=== PATIENT | female | born 1925 | race Caucasian/White ===

== ENCOUNTER → 2017-07-06 | Outpatient (CLI) | payer MEDICARE, BC ==
[~2017-07-06] MED LIST: ASPI-1471 PO; CHOL200038 PO; HYDR-2966 PO; LOSA50TA72 PO; MULT-820 PO; NO MEDS
--- NOTE | 2017-07-06 16:59 | RADIOLOGY IMAGING REPORT ---
FACILITY: [facility] - [place], [place] PATIENT NAME: Raegan Roche : 1925 MR: [id number] V: [id number] EXAM DATE: ORDERING PHYSICIAN: AUTUMN FRANKS TECHNOLOGIST: Location: [facility] - [place] Patient: Raegan Roche : 1925 Visit/Account:[id number] Date of Sevice: 07/06/2017 THYROID HISTORY: Hypothyroidism COMPARISON: April 25, 2016 FINDINGS: SIZE: Right lobe: 5.7 x 2.1 x 2.1 cm and a decrease in size when compared to the prior study. Left lobe: 3.9 x 1.7 x 1.6 cm and is also decreased in size when compared the prior study Isthmus: 6 mm PARENCHYMA: The left lobe is extremely heterogeneous NODULES: Right * Scattered calcifications are seen in the mid to inferior right lobe Left lobe: * There is a 9.7 mm nodule in the inferior left lobe with echogenic center and a hypoechoic rim is m inimally increased in size when compared the prior study Isthmus: * None discrete. VASCULARITY: Within normal limits. ADDITIONAL FINDINGS: None. IMPRESSION: Both lobes of the thyroid gland have decreased in size when compared to the prior study. There is a 9.7 mm nodule inferior left lobe with an echogenic center and a hypoechoic rim is minimall y increased in size when compared the prior study. Scattered calcified occasions are seen in the mid to inferior right lobe. Six-month follow-up thyroi d ultrasound recommended unless clinical findings were immediate attention REFERENCE: 2015 [employer] [place] [employer] Management Guidelines for Adult Patients with Thyroid Nodules and D ifferentiated Thyroid Cancer: The [place] [employer] Guidelines Task Force on Thyroid Nodul es and Differentiated Thyroid Cancer. SONOGRAPHIC PATTERNS: * Benign: Purely cystic nodules (no solid component); estimated risk of malignancy <1 percent; no bi opsy recommended. * Very Low Suspicion: Spongiform or partially cystic nodules without any of the sonographic features described in low, intermediate, or high suspicion patterns; estimated risk of malignancy <3 percent; consider FNA at > 2 cm (Observation without FNA is also a reasonable option). * Low Suspicion: Isoechoic or hyperechoic solid nodule, or partially cystic nodule with eccentric so lid areas, without microcalcification, irregular margin or ETE (extra-thyroidal extension), or taller than wide shape; estimated risk of malignancy 5-10 percent; recommend FNA at >1.5 cm. * Intermediate Suspicion: Hypoechoic solid nodule with smooth margins without microcalcifications, E TE (extra-thyroidal extension), or taller than wide shape; estimated risk of malignancy 10-20 percent ; recommend FNA at > 1 cm. * High Suspicion: Solid hypoechoic nodule or solid hypoechoic component of a partially cystic nodule with one or more of the following features: irregular margins (infiltrative, microlobulated), microc alcifications, taller than wide shape, rim calcifications with small extrusive soft tissue component, evidence of ETE (extra-thyroidal extension); estimated risk of malignancy >70-90 percent; recommend FNA at > 1 cm. NOTES: * Although a sonographically suspicious subcentimeter thyroid nodule without evidence of extrathyroi jami extension or sonographically suspicious lymph nodes may be observed with close sonographic follow -up rather than pursuing immediate FNA, patient age and preference may modify decision-making. A > 50% interval increase in nodule volume and/or development of new suspicious sonographic features are felt to be a valid reasons for potential re-aspiration of a nodule previously shown to have benig n FNA cytology. Report Dictated By: Sasha Velasco MD at 07/06/2017 4:40 PM Report E-Signed By: Sasha Velasco MD at 07/06/2017 4:55 PM WSN:[id number]
== END ==
LOC: US 02:06
PROVIDERS: ATTEND Family Medicine
DX: E04.2 Nontoxic multinodular goiter (principal)
CPT/HCPCS: 76536

== ENCOUNTER 2017-09-11 15:15 | Outpatient (RCR) | payer MEDICARE, BC ==
--- NOTE | 2017-08-23 17:50 | PT INITIAL EVALUATION ---
MEDICAL DIAGNOSIS: Thoracic and Right Arm Pain TREATMENT DIAGNOSIS: Thoracic and Right Arm Pain DATE OF ONSET: 08/16/17 SUBJECTIVE: Raegan is a 89 year old female presenting to physical therapy following the return of thoracic and R shoulder pain which started last Monday (08/19/17). Pt reports that pain goes across both scapulae and in to the R shoulder and arm to the level of the forearm. Pain at it's worst is 9/10 and is rated at 1-2/10 at best, never going away completely. Pain is currently 4 /10 extending into the R forearm. Pt reports that she has not well continued with her previous PT exercises but does do a few of them occasionally. REHAB PROBLEM LIST: Increased Pain Decreased ROM Decreased Strength Decreased Function Decreased ADL's Decreased Gait PREVIOUS MEDICAL HISTORY: See EMR OCCUPATION: Volunteers for various organizations. OBJECTIVE: ROM: Cervical ROM: flexion/ext: full without any change in pain, B SB: full without pain, L rotation: full with stretch in L shoulder, R rotation: full with stretch in R shoulder at end. Thoracic ROM: flexion: full without pain, ext: moderate restrictions without pain in R shoulder, L rotation: full without pain, R rotation: full with R shoulder pain. Palpation: Pt has increased thoracic kyphosis with rounded shoulders and forward head. Sensation: Pt denies any numbness or tingling in extremities Special Tests: Jess Thoracic Screen: Flexion: pain increased in shoulder, Ext: pain reduced in shoulder to 2-3/10 and centralized from forearm to shoulder and thoracic spine only. Gait: Pt ambulates with forward trunk lean and wide MARCIO with use of SPC AD. Other Objective Findings: Quick DASH Score: 33= 50% Disability ASSESSMENT: Raegan shows signs and symptoms of thoracic impingement with radiation into the R UE. Physical therapy is indicated to address the above listed impairments as well as improve pt function with ADL's and volunteering activities without pain. Short Term Goals In 3 weeks pt will centralize pain to the thoracic spine only for improved function of the R UE for ADL's. In 6 weeks pt will decrease thoracic pain to 0/10 for improved function with ADL's. In 6 weeks pt will increase thoracic mobility to full without pain in all directions for improved function with ADL's. In 6 weeks pt will decrease Quick DASH score to <39% impairment for improved function with ADL's and volunteering duties. Patient's Goals Decrease pain with ADL's and volunteering. PLAN: Patient to be seen for Manual Therapy/STM/MET Strengthening/condition Ice/Heat Range of Motion Spinal Stabilization Ultrasound Stretching Iontophoresis Neuromuscular Re-ed Closed Chain Program Electrical Stim Posture/Body mechanics Gait Trg/Balance Trg Biofeedback Home Exercise Program Mech./Manual Traction Therapeutic Activities 3x/Week for 6 Weeks If you have any questions, comments, or concerns about this report or plan, please contact me at . Thank you, Haylie Campbell, PT, DPT, CLT MTDD
--- NOTE | 2017-09-11 16:06 | PT PLAN OF CARE ---
Physician: Jesica Mahan DO Patient is being seen: 2-3x/Week Therapist: Haylie Campbell, PT, DPT, CLT Medical Diagnosis: Thoracic and Right Arm Pain Treatment Diagnosis: Thoracic and Right Arm Pain Date of Onset: 08/16/17 Date of Initial Evaluation: 08/22/17 Date patient was last seen: 09/11/17 Number of treatments: 7 Number of cancellations/No shows: 0 INTERVENTIONS: Manual Therapy/STM/MET Strengthening/condition Ice/Heat Range of Motion Spinal Stabilization Ultrasound Stretching Iontophoresis Neuromuscular Re-ed Closed Chain Program Electrical Stim Posture/Body mechanics Gait Trg/Balance Trg Biofeedback Home Exercise Program Mech./Manual Traction Therapeutic Activities GOALS: In 3 weeks pt will centralize pain to the thoracic spine only for improved function of the R UE for ADL's. MET In 6 weeks pt will decrease thoracic pain to 0/10 for improved function with ADL 's. MET In 6 weeks pt will increase thoracic mobility to full without pain in all directions for improved function with ADL's. MET In 6 weeks pt will decrease Quick DASH score to <39% impairment for improved function with ADL's and volunteering duties. MET PATIENT'S GOAL: Decrease pain with ADL's and volunteering. Status of Patient's Goals: 4/4 MET Patient Compliance: Good Prognosis: Good Reasons for discharge from therapy: Raegan shows excellent progress with shoulder pain with complete abolishment of symptoms in the R shoulder and upper back. Raegan is to discharge from physical therapy at this time secondary to completion of 4/4 functional goals. Upon discharge pt is to continue with HEP if any pain is to return as well as to maintain progress with postural changes. At this time pt's current largest limitation is concerning decreased balance with ambulation and generalized weakness. Pt PCP contacted for possible PT referral for treatment addressing these deficits. Posture: Flat upper thoracic with kyphosis in lower thoracic. Forward trunk lean. ROM: Cervical ROM: Full without pain Thoracic ROM: full in all directions with slight stretch/pain with L rotation. Outcome measures: Quick DASH Disability Ratin.9% If you have any questions or concerns, please feel free to contact me at [phone]. Thank you, Haylie Campbell, PT, DPT, CLT [facility]
== END 2017-09-11 18:00 | disposition home or self-care (01) ==
LOC: PT 15:15
PROVIDERS: ATTEND Family Medicine
DX: M79.601 Pain in right arm (principal); M25.511 Pain in right shoulder; M54.6 Pain in thoracic spine
CPT/HCPCS: 97161

== ENCOUNTER 2017-10-09 14:00 | Outpatient (RCR) | payer MEDICARE, BC ==
--- NOTE | 2017-09-15 12:50 | PT INITIAL EVALUATION ---
MEDICAL DIAGNOSIS: Generalized Weakness, Unsteadiness of Gait TREATMENT DIAGNOSIS: Generalized Weakness, Unsteadiness of Gait DATE OF ONSET: 09/15/17 SUBJECTIVE: Raegan is a 89 year old female presenting to physical therapy for strengthening and stability training following a fpc history of unsteady gait. Pt reports that she feels like over the years she gets more and more wobbly and wants to work on it before she falls. She is going on vacation in October and wants to try to get as good as she can before then. Pt reports no pain at this time but has a history of thoracic and lumbar pain. REHAB PROBLEM LIST: Decreased Strength Decreased Endurance Decreased Balance Decreased Function Decreased ADL's Decreased Mobility Decreased Gait PREVIOUS MEDICAL HISTORY: See EMR OCCUPATION: Volunteers and multiple locations OBJECTIVE: Posture: Pt has significant forward trunk lean posture with rounded shoulders. ROM: LE ROM: WFL Strength: LE MMT: Hip: Flexion: B 4-/5, Ext: B 4/5, Abd: B 4-/5, Add: B 4+/5. Knee: ext: B 4/4, Flexion: L 4-5, R 4/5. Ankle: DF: R 4+/5, L 4/5, PF: R 4+/5, L 3+/5. Special Tests: Dynamic Gait Index (DGI): 30 Gait: Pt ambulates with significant forward trunk lean with decreased step height B. Pt occasionally uses SPC for ambulation. Balance: 4 Stage Balance Test for 30 sec: Maximum level reached at SLS L 3 sec, R 12 sec. Other Objective Findings: ASSESSMENT: Raegan shows signs and symptoms consistent with generalized weakness and unsteadiness of gait as described by the above listed impairments. Physical therapy is indicated to improve pt functional mobility with ADL's and ambulation to decrease risk of falls. Short Term Goals In 2 weeks pt will be able to perform SLS on B LE for 15 seconds for improved balance with ADL's and ambulation. In 4 weeks pt will increase B LE strength to 4/5 or greater in all major muscle groups for improved function with ADL's. In 4 weeks pt will increase FGA score to >19/30 for improved functional mobility with ADL's and safety with ambulation. Patient's Goals Improve strength and balance PLAN: Patient to be seen for Manual Therapy/STM/MET Strengthening/condition Ice/Heat Range of Motion Spinal Stabilization Ultrasound Stretching Iontophoresis Neuromuscular Re-ed Closed Chain Program Electrical Stim Posture/Body mechanics Gait Trg/Balance Trg Biofeedback Home Exercise Program Mech./Manual Traction Therapeutic Activities Pelvic Floor 3x/Week for 4 Weeks If you have any questions, comments, or concerns about this report or plan, please contact me at . Thank you, Haylie Campbell, PT, DPT, CLT MTDD
== END 2017-10-09 18:00 | disposition home or self-care (01) ==
LOC: PT 14:00
PROVIDERS: ATTEND Family Medicine
DX: M62.81 Muscle weakness (generalized) (principal); R26.81 Unsteadiness on feet; M54.5 Low back pain; M54.6 Pain in thoracic spine
CPT/HCPCS: 97161